=== PATIENT | male | born 1960 | race Two or more races ===

== ENCOUNTER 2018-11-01 00:38 | Inpatient (IN) | payer OTHER ==
[2018-11-01] VITALS (7 sets, daily range): BP systolic 128–153; BP diastolic 75–102
[~2018-11-01] VITALS: Ht 167.6 cm; Wt 91.2 kg
--- NOTE | 2018-11-01 02:10 | NUR ---
SENIOR MOBILE [employer]UT[employer] ARCHITECT NOTES Received patient direct admit from [facility] via [facility]ney accompanied by 2 paramedics. Assisted patient to bed comfortably. Admission routine done. Belongings inventory completed by the assigned MARINE SAFETY OFFICER. Patient refused skin assessment at this time, patient claimed he has not skin issues identified. Abdomen noted distended. With complaint of pain 08/28. Patient asked for something to make him sleep as well. Kept patient to bed clean, dry and comfortable. Initiated IVF as ordered, RAC G#20 present upon admission. Administered Ambien as ordered. Kept bed low and locked, siderails x2 up, call light within easy reach. Will continue to monitor accordingly.
--- NOTE | 2018-11-01 02:11 | NUR ---
MANAGER ACTION NOTES On tele monitor with Sinus Tach 105 noted. No unusualities noted to the patient.
[2018-11-01] MEDS: IV NS 0.9% 1,000 ML IV PRN ×2 (02:27→16:36)
[2018-11-01] MEDS ORDERED: MORPHINE SULFATE INJ 2 MG/ML DISP.SYRIN IV PRN (02:30)
[2018-11-01] MEDS ORDERED: HYDROCODONE/APAP 5/325MG 1 EACH TABLET PO PRN (02:30)
[2018-11-01] MEDS ORDERED: ACETAMINOPHEN 325 MG TABLET PO PRN (02:30)
[2018-11-01] MEDS ORDERED: MAG HYDROX/AL HYDROX/SIMETH 30 ML UDC PO PRN (02:30)
[2018-11-01] MEDS ORDERED: MAGNESIUM HYDROXIDE 30 ML UDC PO PRN (02:30)
[2018-11-01] MEDS ORDERED: LORAZEPAM INJ 2 MG/ML VIAL IV PRN (02:30)
[2018-11-01] MEDS ORDERED: ONDANSETRON HCL/PF 4 MG/2 ML VIAL IVP PRN (02:30)
--- NOTE | 2018-11-01 02:30 | NUR ---
PHOTO MACHINE OPERATOR NOTES Patient wished to be DNR but advance directive copy will by provided coming from the sister per patient. Explained to patient that he will be full code at this time until documentation is provided. Patient verbalized understanding. Charcoal Unloader consult provided as well. Will continue to follow up in AM.
[2018-11-01] MEDS: ZOLPIDEM TARTRATE 5 MG TABLET PO PRN ×2 (02:53→21:02)
[2018-11-01 06:23] LABS: BASOPHILS % (AUTO) 0.4 % (0.0-2.0); EOSINOPHILS % (AUTO) 0.1 % (0.0-6.0); HEMATOCRIT 41 % (39-51); HEMOGLOBIN 14.1 g/dL (13.5-17.5); LYMPHOCYTES # (AUTO) 0.6 /CMM (0.8-4.8); LYMPHOCYTES % (AUTO) 6.1 % (20.0-44.0); MEAN CORPUSCULAR HGB CONC 35 g/dl (31.0-36.0); MEAN CORPUSCULAR VOLUME 88 fL (80-96); MONOCYTES # (AUTO) 0.7 /CMM (0.1-1.30); MONOCYTES % (AUTO) 6.5 % (2.0-12.0); NEUTROPHILS # (AUTO) 8.9 /CMM (1.8-8.9); NEUTROPHILS % (AUTO) 86.9 % (43.0-81.0); PLATELET COUNT (AUTO) 159 /CMM (150-450); RED BLOOD CELL COUNT(AUTO) 4.62 MIL/uL (4.5-6.0); WHITE BLOOD COUNT (AUTO) 10.2 K/uL (4.3-11.0)
--- NOTE | 2018-11-01 06:52 | NUR ---
FINISH REPAIRER CLOSING NOTES Patient asleep, easily awaken. On RA, no SOB/respiratory distress noted. On tele monitor with SR noted. No new complaints made. No complaints of discomfort at this time. With peripheral IV infusing well as ordered. Kept on bed clean, dry and comfortable. Call light within easy reach. Endorsed to the next shift.
[2018-11-01 06:53] LABS: THYROID STIMULATING HORMONE 3.881 uIU/mL (0.358-3.74)
[2018-11-01 07:03] LABS: ALBUMIN 3.2 g/dL (3.4-5.0); BILIRUBIN,DIRECT 0.1 mg/dL (0.0-0.2); BILIRUBIN,TOTAL 0.6 mg/dL (0.2-1.0); CALCIUM, SERUM 7.7 mg/dL (8.5-10.1); CREATININE 0.8 mg/dL (0.6-1.3); MAGNESIUM 1.9 mg/dL (1.8-2.4); PHOSPHORUS 3.1 mg/dL (2.5-4.9); POTASSIUM 3.5 mmol/L (3.5-5.1); TOTAL PROTEIN, SERUM 7.5 g/dL (6.4-8.2)
--- NOTE | 2018-11-01 07:18 | NUR ---
MILLER WOOD FLOUR OPENING NOTES RECEIVED PATIENT IN BED, ASLEEP, AROUSABLE TO VERBAL AND TACTILE STIMULI. ALERT AND ORIENTED X4. NO SOB OBSERVED. DENIES ANY C/O PAIN NOR DISCOMFORT AT THIS TIME. ON TELE MONITORING SINUS TACH: 109. RIGHT AC #20 INTACT AND PATENT INFUSING NS @ 100ML/HR. CALL LIGHT WITHIN REACH. IN NO APPARENT DISTRESS AT THIS TIME. BED IN LOWEST POSITION. BED SIDERAILS UP X2. NO C/O N/V AT THIS TIME.
[2018-11-01] MEDS: PANTOPRAZOLE 40 MG TABLET.DR PO SCH (08:25)
[2018-11-01] MEDS ORDERED: AMLO10TA7 PO (08:27)
[2018-11-01] MEDS ORDERED: TAMS-12 PO (08:27)
[2018-11-01] MEDS ORDERED: CHOL200026 PO (08:27)
[2018-11-01] MEDS ORDERED: MELO-105 PO (08:27)
[2018-11-01] MEDS ORDERED: OMEP20TA5 PO (08:27)
[2018-11-01] MEDS ORDERED: AMIT10TA6 PO (08:27)
[2018-11-01] MEDS: FOLIC ACID 1 MG TABLET PO SCH (08:41)
[2018-11-01] MEDS: CHLORDIAZEPOXIDE HCL 25 MG CAPSULE PO SCH ×2 (08:41→16:34)
[2018-11-01] MEDS: MULTIVITAMINS,THERAGRAN 1 UDTAB TABLET PO SCH (08:41)
[2018-11-01] MEDS: THIAMINE HCL 100 MG TABLET PO SCH (08:42)
--- NOTE | 2018-11-01 08:43 | NUR ---
FERN GATHERER NOTES MANUAL BARCODE ENTERED DUE TO NOT READING BARCODE WHEN SCANNED FOR THIAMINE (VIT B1) 100 MG.
--- NOTE | 2018-11-01 14:15 | NUR ---
Social service consult requested by KRISTI Laurent for alcohol abuse. Pt. is a 58 year old male who was a direct admit from [facility]. SW met with pt. bedside. Pt is alert and oriented x 4. Pt. appeared disheveled. Pt's mood is congruent. Per pt. he resides with his brother at [address] [place] [address] in [place]. [place]. Pt. is an alcoholic and has been drinking for the past 20 years. Pt's alcohol of choice is beer. Pt. drinks approximately 10 beers per day. Pt. stated he did attend an alcohol treatment program four years ago on [facility] in [place] but is unable to provide the name of the center. Pt. was attending AA but stopped going and couldn't provide a reason as to why he stopped going. [facility] offered pt. referrals to alcohol treatment programs, however pt. declined stating, " I know where to go if I decide to go into treatment." [facility] encouraged pt. to go to a treatment program. No other social service needs are requested at this time. SW is available, if needed.
--- NOTE | 2018-11-01 14:45 | NUR ---
MS RN NOTES CALLED AND SPOKE TO LUISITO (PATIENT'S SISTER) AT REGARDING PATIENT'S ADVANCE DIRECTIVE THAT THE SISTER WILL PROVIDE DUE TO PATIENT'S WISH TO BE DNR. PER LUISITO, SHE DOES NOT HAVE ANY FORM THAT PATIENT HAD FILLED OUT OR ANY DOCUMENT ABOUT BEING DNR. SPOKE TO PATIENT AND RELAYED WHAT LUISITO HAD SAID. DISCUSSED WITH PATIENT REGARDING PATIENT'S CODE STATUS, PER PATIENT, HE WISHES TO BE DNR AND DNI. POLST GIVEN AND DISCUSSED AND COMPLETED BY PATIENT. INFORMED PATIENT THAT UNTIL MD SIGNS THE POLST, PATIENT WILL REMAIN FULL CODE STATUS. PATIENT VERBALIZES UNDERSTANDING.
--- NOTE | 2018-11-01 18:38 | NUR ---
MS RN CLOSING NOTES PATIENT IN BED, ALERT AND AWAKE ORIENTED X4 . WITH EPISODES OF SLEEPING INTERMITTENTLY DURING THE SHIFT BUT AROUSABLE TO VERBAL AND TACTILE STIMULI. DENIES ANY C/O PAIN NOR DISCOMFORT. DENIES C/O OF SOB. DENIES C/O NAUSEA NOR VOMITING. . LEFT HAND #22 INTACT AND PATENT INFUSING NS @ 100ML/HR. CALL LIGHT WITHIN REACH. IN NO APPARENT DISTRESS AT THIS TIME. BED IN LOWEST POSITION. BED SIDERAILS UP X2. ABLE TO VERBALIZE NEEDS.
--- NOTE | 2018-11-01 19:03 | NUR ---
RN MS OPENING NOTES RECEIVED PATIENT IN BED, AWAKE ALERT AND ORIENTED X4, RESPIRATIONS EVEN AND UNLABORED WITH EQUAL RISE AND FALL OF CHEST, DENIES ANY PAIN OR DISCOMFORT AT THIS TIME, IV SITE TO LEFT HAND #22 G INTACT AND PATENT, NO REDNESS, NO INFILTRATION PRESENT, IVF RUNNING ORDERED, URINAL AT BEDSIDE, FLUIDS OFFERED, PATIENT IS COMFORTABLE AT THIS TIME WILL CONTINUE TO MONITOR SAFETY PRECAUTIONS IN PLACE, LOW BED AND LOCKED, BED ALARM IN PLACE, FALL PRECAUTIONS RENDERED, ORIENTED TO STAFF AND CALL LIGHT AND KEPT WITHIN REACH.
--- NOTE | 2018-11-01 21:02 | NUR ---
RN MS NOTE PATIENT REQUESTING TO HAVE AMBIEN STATES "WOULD LIKE TO GET SOME SLEEP TONIGHT" PRN AMBIEN GIVEN ORDERED, WILL CONTINUE TO MONITOR FOR EFFECTIVENESS.
--- NOTE | 2018-11-01 21:12 | NUR ---
RN MS NOTES PATIENT STATES "FEEL A LITTLE NAUSEA" ZOFRAN PRN OFFERED, PATIENT AGREED, ZOFRAN PRN GIVEN PROVIDED EMESIS BAGS, WILL CONTINUE TO MONITOR FOR EFFECTIVENESS.
[2018-11-02] MEDS: IV NS 0.9% 1,000 ML IV PRN (02:35)
[2018-11-02 06:33] LABS: BASOPHILS % (AUTO) 0.6 % (0.0-2.0); EOSINOPHILS % (AUTO) 0.9 % (0.0-6.0); HEMATOCRIT 41 % (39-51); LYMPHOCYTES # (AUTO) 0.6 /CMM (0.8-4.8); MEAN CORPUSCULAR HGB CONC 34 g/dl (31.0-36.0); MEAN CORPUSCULAR VOLUME 90 fL (80-96); MONOCYTES # (AUTO) 0.6 /CMM (0.1-1.30); MONOCYTES % (AUTO) 8.3 % (2.0-12.0); NEUTROPHILS # (AUTO) 5.4 /CMM (1.8-8.9); NEUTROPHILS % (AUTO) 81.2 % (43.0-81.0); PLATELET COUNT (AUTO) 140 /CMM (150-450); RED BLOOD CELL COUNT(AUTO) 4.62 MIL/uL (4.5-6.0); WHITE BLOOD COUNT (AUTO) 6.6 K/uL (4.3-11.0)
--- NOTE | 2018-11-02 06:37 | NUR ---
RN MS CLOSING NOTES PATIENT IN BED, AWAKE ALERT AND ORIENTED X4, RESPIRATIONS EVEN AND UNLABORED WITH EQUAL RISE AND FALL OF CHEST, DENIES ANY PAIN OR DISCOMFORT AT THIS TIME, IV SITE TO LEFT HAND #22 G INTACT AND PATENT, NO REDNESS, NO INFILTRATION PRESENT, IVF RUNNING ORDERED, URINAL AT BEDSIDE, FLUIDS OFFERED, PATIENT IS COMFORTABLE AT THIS TIME WILL CONTINUE TO MONITOR SAFETY PRECAUTIONS IN PLACE, LOW BED AND LOCKED, BED ALARM IN PLACE, FALL PRECAUTIONS RENDERED, NO CHANGES THROUGHOUT SHIFT NOTES, ZOFRAN WAS EFFECTIVE PATIENT SLEPT WELL THROUGHOUT SHIFT. CALL LIGHT KEPT WITHIN REACH WILL CONTINUE TO MONITOR AND ENDORSE TO NEXT SHIFT FOR CONTINUITY OF CARE.
[2018-11-02 06:40] LABS: CALCIUM, SERUM 7.9 mg/dL (8.5-10.1); CREATININE 0.8 mg/dL (0.6-1.3); MAGNESIUM 2.3 mg/dL (1.8-2.4); POTASSIUM 3.4 mmol/L (3.5-5.1)
--- NOTE | 2018-11-02 07:45 | NUR ---
MS RN RECEIVED ON BED, AWAKE,ALERT,ORIENTED X4,NOT IN ANY FORM OF DISTRESS, RESPIRATIONS EVEN AND UNLABORED,NO SOB NOTED., LUNGS ARE CLEAR,ABDOMEN SOFT,POSITIVE BOWEL SOUNDS,DENIES PAIN AT THIS TIME,ALL NEEDS ATTENDED.
[2018-11-02 08:00] VITALS: BP 146/96
--- NOTE | 2018-11-02 09:20 | NUR ---
MS PEREIRA BREAKFAST SERVED,DUE MEDS GIVEN,TOLERATED WELL.
[2018-11-02] MEDS: CHLORDIAZEPOXIDE HCL 25 MG CAPSULE PO SCH (09:21)
[2018-11-02] MEDS: MULTIVITAMINS,THERAGRAN 1 UDTAB TABLET PO SCH (09:21)
[2018-11-02] MEDS: FOLIC ACID 1 MG TABLET PO SCH (09:21)
[2018-11-02] MEDS: THIAMINE HCL 100 MG TABLET PO SCH (09:21)
[2018-11-02] MEDS: PANTOPRAZOLE 40 MG TABLET.DR PO SCH (09:24)
--- NOTE | 2018-11-02 10:00 | NUR ---
MS RN WAS SEEN BY SRINIVASAN Yates/ DISCHARGE ORDER FOR TODAY.
[2018-11-02] MEDS ORDERED: POTASSIUM CHLORIDE 20 MEQ TAB.PRT.SR PO SCH (11:30)
--- NOTE | 2018-11-02 12:00 | NUR ---
MS RN WAS NOT ABLE TO GIVE POTASSIUM, REORDERED IT AGAIN, RX NOTIFIED.
--- NOTE | 2018-11-02 14:00 | NUR ---
MS RN PATIENT IS READY, WAITING FOR HER DAUGHTER, WAS ABLE TO CALL HER ,NOW COMING.
[2018-11-02] MEDS ORDERED: POTASSIUM CHLORIDE 20 MEQ TAB.PRT.SR PO ONE (14:30)
--- NOTE | 2018-11-02 15:55 | NUR ---
MS CANDLE WICKER INSTRUCTIONS GIVEN, WENT HOME ACCOMPANIED BY NEPHEW,NO DISTRESS NOTED.
== END 2018-11-02 15:45 | disposition home or self-care (01) | DRG 775 ==
LOC: TELE 02:00 → MED 10:23
PROVIDERS: ADMIT Nurse Practitioner Acute Care; ATTEND Nurse Practitioner Acute Care
DX: F10.239 Alcohol dependence with withdrawal, unspecified (principal); E44.1 Mild protein-calorie malnutrition; F19.10 Other psychoactive substance abuse, uncomplicated; F32.9 Major depressive disorder, single episode, unspecified; G47.00 Insomnia, unspecified; F41.9 Anxiety disorder, unspecified
CPT/HCPCS: 36415; 80048-TC; 80053-TC; 80061-TC; 80076-TC; 83735-TC; 84100-TC; 84443-TC; 85025-TC; 87081-TC; G0378; J2405; J7030